=== PATIENT | male | born 1945 | race Asian ===

== ENCOUNTER 2019-05-13 07:37 | Inpatient (IN) | payer OTHER ==
[~2019-05-13] VITALS: Ht 165.1 cm; Wt 80.7 kg
--- NOTE | 2019-05-13 07:45 | NUR ---
EKG TAKEN AT BEDSIDE
--- NOTE | 2019-05-13 07:50 | NUR ---
PT BIBWIFE, C/O LEFT ARM NUMBNESS STARTED AROUND 6:45AM TODAY. PT AAOX4, BREATHING EVEN AND UNLABORED W/ NAD, AND AMBULATORY. PT CONNECTED TO THE MONITOR.
--- NOTE | 2019-05-13 07:59 | NUR ---
BLOOD DRAWN AND SENT TO LAB
[2019-05-13 08:00] LABS: BASOPHILS % (AUTO) 0.5 % (0.0-2.0); EOSINOPHILS % (AUTO) 3.3 % (0.0-6.0); HEMATOCRIT 35 % (39-51); HEMOGLOBIN 11.6 g/dL (13.5-17.5); LYMPHOCYTES # (AUTO) 1.3 /CMM (0.8-4.8); LYMPHOCYTES % (AUTO) 16.2 % (20.0-44.0); MEAN CORPUSCULAR HGB CONC 33 g/dl (31.0-36.0); MEAN CORPUSCULAR VOLUME 93 fL (80-96); MONOCYTES # (AUTO) 0.4 /CMM (0.1-1.30); MONOCYTES % (AUTO) 5.3 % (2.0-12.0); NEUTROPHILS # (AUTO) 6.1 /CMM (1.8-8.9); NEUTROPHILS % (AUTO) 74.7 % (43.0-81.0); PLATELET COUNT (AUTO) 184 /CMM (150-450); RED BLOOD CELL COUNT(AUTO) 3.81 MIL/uL (4.5-6.0); WHITE BLOOD COUNT (AUTO) 8.1 K/uL (4.3-11.0)
[2019-05-13 08:08] LABS: CALCIUM, SERUM 8.8 mg/dL (8.5-10.1); CARBON DIOXIDE 22 mmol/L (21-32); CHLORIDE 102 mmol/L (98-107); CREATININE 4.4 mg/dL (0.6-1.3); GLUCOSE 253 mg/dL (74-106); SODIUM SERUM 133 mmol/L (136-145); UREA NITROGEN, BLOOD 63 mg/dL (7-18)
--- NOTE | 2019-05-13 08:11 | NUR ---
XRAY AT BEDSIDE
--- NOTE | 2019-05-13 08:45 | NUR ---
PLACED CALL TO [facility] FOR DR CADE, LEFT MESSAGE WITH ANSWERING SERVICE
[2019-05-13] MEDS ORDERED: GABA-534 PO (08:52)
[2019-05-13] MEDS ORDERED: ASPI-1152 PO (08:52)
[2019-05-13] MEDS ORDERED: SITA50TA PO (08:52)
[2019-05-13] MEDS ORDERED: INSU100I30 SQ (08:52)
[2019-05-13] MEDS ORDERED: MONT10TA22 PO (08:52)
[2019-05-13] MEDS ORDERED: CLON0.1T PO (08:52)
[2019-05-13] MEDS ORDERED: AMLO5TAB9 PO (08:52)
[2019-05-13] MEDS ORDERED: HYDR25TA4 PO (08:52)
[2019-05-13] MEDS ORDERED: LOSA50TA39 PO (08:52)
[2019-05-13] MEDS ORDERED: ATOR10TA PO (08:52)
[2019-05-13] MEDS ORDERED: ALLO100T PO (08:52)
--- NOTE | 2019-05-13 09:04 | NUR ---
REPORT GIVEN TO JACKIE LARA
--- NOTE | 2019-05-13 10:19 | NUR ---
MS/RN New admission New admission from emergency room with diagnose of neuropathy. A/O X4, denies any further numbness to left arm. Has full strength and range of motion to arm. Fully admitted, awaiting orders.
[2019-05-13] MEDS ORDERED: MORPHINE SULFATE INJ 2 MG/ML DISP.SYRIN IV PRN (10:30)
[2019-05-13] MEDS ORDERED: CLONIDINE HCL 0.1 MG TABLET PO PRN (10:30)
[2019-05-13] MEDS ORDERED: NITROGLYCERIN 0.4 MG/TAB BOTTLE SL PRN (10:30)
--- NOTE | 2019-05-13 10:44 | NUR ---
MS/RN S/B Dr Santo Seen by Dr Santo - patient scheduled for lexiscan tomorrow morning, consent form signed.
[2019-05-13 10:49] VITALS: BP 143/73
[2019-05-13 11:00] VITALS: BP 143/73
[2019-05-13] MEDS ORDERED: SODIUM POLYSTYRENE SULF. PWD 15 GM UDC PO ONE (12:00)
[2019-05-13] MEDS ORDERED: FUROSEMIDE 20 MG/2 ML VIAL IV ONE (12:00)
[2019-05-13] MEDS: LINAGLIPTIN 5 MG TABLET PO SCH (12:36)
--- NOTE | 2019-05-13 12:52 | NUR ---
MS RN BLOOD SUGAR CHECK LUNCH TIME BLOOD SUGAR 130. AWAITING INSULIN ORDERS FROM DR. CADE.
[2019-05-13 15:52] LABS: CALCIUM, SERUM 8.5 mg/dL (8.5-10.1); CARBON DIOXIDE 22 mmol/L (21-32); CHLORIDE 109 mmol/L (98-107); CREATININE 4.4 mg/dL (0.6-1.3); GLUCOSE 170 mg/dL (74-106); POTASSIUM 5.6 mmol/L (3.5-5.1); SODIUM SERUM 141 mmol/L (136-145); UREA NITROGEN, BLOOD 60 mg/dL (7-18)
[2019-05-13 16:00] VITALS: BP 150/79
[2019-05-13] MEDS ORDERED: LOSARTAN POTASSIUM 50 MG TABLET PO SCH (17:00)
[2019-05-13] MEDS: GABAPENTIN 300 MG CAPSULE PO SCH (17:27)
[2019-05-13] MEDS ORDERED: ATORVASTATIN 10 MG TABLET PO SCH (18:00)
--- NOTE | 2019-05-13 19:15 | NUR ---
AUTO RADIO MECHANIC OPENING NOTES RECEIVED PATIENT FROM MORNING SHIFT, ALERT AND ORIENTED X 4. VERBALLY RESPONSIVE AND ABLE TO FOLLOW DIRECTIONS. BREATHING REGULAR AND UNLABORED ON ROOM AIR. RIGHT AC G18 IV LINE INTACT AND PATENT WITH NO BLEEDING OR S/S OF INFECTION/INFILTRATION NOTED. ON TOOL AND DIE REPAIR WITH NSR AT 65bpm. BODY ASSESSMENT DONE, SKIN REMAINED INTACT, DRY AND CLEAN. AMBULATORY; BOWEL AND BLADDER CONTINENT WITH CLEAR YELLOW URINE IN MODERATE AMOUNT ON URINAL. NO COMPLAINTS OF PAIN/DISCOMFORT REPORTED. BED LOW AND LOCKED ON SEMI FOWLERS POSITION. CALL LIGHT IN REACH. WILL CONTINUE TO MONITOR.
--- NOTE | 2019-05-13 19:25 | NUR ---
MS RN CLOSING NOTE PATIENT A/O X4. NO SIGNS OF RESPIRATORY DISTRESS. RIGHT AC HEP LOCK INTACT NO SIGNS OF INFILTRATION. BED IS IN LOWEST POSITION. SIDE RAILS X2 IN UPRIGHT POSITION. CALL LIGHT WITHIN REACH. CRITICAL LAB VALUE RECEIVED TROPONIN 0.735. TRAN PATEL PIN DRAFTING MACHINE OPERATOR NOTIFIED STAT EKG ORDERED. PATIENT DENIES ANY CHEST PAIN, VITAL SIGNS ARE STABLE, CONTINUES TO READ NSR ON MONITOR. ENDORSED TO SETUP OPERATOR.
--- NOTE | 2019-05-13 19:30 | NUR ---
ROLL FORMING MACHINE OPERATOR NOTES LAB CALLED TO REPORT TROPONIN LEVEL INCREASED FROM 0.135 TO 0.756. VITAL SIGNS CHECKED WITH BP 155/80 HR 77 RR 16 Temp 98.9 SPO2 98%. NO REPORTS OF PAIN/DISCOMFORT. ISAIAH PATEL MADE AWARE WITH ORDERS TO DO STAT EKG NOTED AND CARRIED OUT. WILL CONTINUE TO MONITOR.
--- NOTE | 2019-05-13 19:50 | NUR ---
OPERATIONS REPRESENTATIVE NOTES EKG DONE, RESULTS RELAYED TO ISAIAH PATEL WITH NO NEW ORDERS RECEIVED. WILL CONTINUE TO MONITOR.
[2019-05-13 20:04] VITALS: BP 164/76
[2019-05-13] MEDS: INSULIN GLARGINE, 100 UNIT/ML CARTRIDGE SQ SCH (21:43)
[2019-05-13] MEDS ORDERED: INSULIN GLARGINE,BASAGLAR 100 UNIT/ML INSULN.PEN SQ SCH (22:00)
[2019-05-14] VITALS (7 sets, daily range): BP systolic 125–172; BP diastolic 75–82
--- NOTE | 2019-05-14 06:24 | NUR ---
CONDENSER TUBE TENDER CLOSING NOTES PATIENT IN BED ALERT AND ORIENTED X 4. VERBALLY RESPONSIVE AND ABLE TO FOLLOW DIRECTIONS. BREATHING REGULAR AND UNLABORED ON ROOM AIR. RIGHT AC G18 IV LINE INTACT AND PATENT, FLUSHING WELL WITH NO BLEEDING OR S/S OF INFECTION/INFILTRATION NOTED. MAINTAINED ON CARDIAC MONITORING WITH NSR WITH 1ST DEGREE AV BLOCK AT 68bpm. REMAINED AMBULATORY. URINE OUTPUT OF 800CC CLEAR YELLOW NOTED WITHIN THE SHIFT. NO COMPLAINTS OF PAIN/DISCOMFORT REPORTED THE WHOLE SHIFT. BED LOW AND LOCKED ON SEMI FOWLERS POSITION. CALL LIGHT IN REACH. WILL ENDORSE TO MORNING SHIFT FOR POLO.
[2019-05-14 06:27] LABS: BASOPHILS % (AUTO) 0.4 % (0.0-2.0); HEMATOCRIT 35 % (39-51); HEMOGLOBIN 11.4 g/dL (13.5-17.5); LYMPHOCYTES # (AUTO) 1.7 /CMM (0.8-4.8); LYMPHOCYTES % (AUTO) 20.4 % (20.0-44.0); MEAN CORPUSCULAR HGB CONC 33 g/dl (31.0-36.0); MEAN CORPUSCULAR VOLUME 91 fL (80-96); MONOCYTES # (AUTO) 0.6 /CMM (0.1-1.30); MONOCYTES % (AUTO) 6.7 % (2.0-12.0); NEUTROPHILS # (AUTO) 5.9 /CMM (1.8-8.9); NEUTROPHILS % (AUTO) 68.5 % (43.0-81.0); PLATELET COUNT (AUTO) 189 /CMM (150-450); RED BLOOD CELL COUNT(AUTO) 3.82 MIL/uL (4.5-6.0); WHITE BLOOD COUNT (AUTO) 8.5 K/uL (4.3-11.0)
[2019-05-14 06:39] LABS: CARBON DIOXIDE 21 mmol/L (21-32); CHLORIDE 111 mmol/L (98-107); CREATININE 4.3 mg/dL (0.6-1.3); GLUCOSE 64 mg/dL (74-106); POTASSIUM 4.8 mmol/L (3.5-5.1); SODIUM SERUM 145 mmol/L (136-145); UREA NITROGEN, BLOOD 63 mg/dL (7-18)
--- NOTE | 2019-05-14 07:15 | NUR ---
POWER SHOVEL OPERATOR HELPER OPENING NOTES RECEIVED PT IN BED, AWAKE, A/O X4. PT TOLERATING RA, WITH NO RESPIRATORY DISTRESS NOTED. ON TELEMONITORING WITH NSR 80. PT DENIES ANY PAIN OR DISCOMFORT AT THIS TIME. PT ALSO DENIES ANY CONCERNS OR QUESTIONS AT THE MOMENT. PIV TO RAC G18, FLUSHED WITH NS, INTACT AND OPERATIONAL. PT KEPT COMFORTABLE. HOB ELEVATED. CALL LIGHT KEPT WITHIN REACH. BED IN LOWEST, LOCKED POSITION WITH SRX3. WILL CONTINUE PLAN OF CARE.
[2019-05-14] MEDS ORDERED: REGADENOSON 0.4 MG/5 ML DISP.SYRIN IVP ONE (08:00)
--- NOTE | 2019-05-14 08:22 | NUR ---
HRIS COORDINATOR NOTES PT LEFT THE UNIT FOR LEXISCAN.
[2019-05-14] MEDS ORDERED: SITAGLIPTIN PHOSPHATE 50 MG TABLET PO SCH (09:00)
--- NOTE | 2019-05-14 09:38 | NUR ---
EKG as per Dr. Santo's order at 0900. Outstanding order for [address] Patino discontinued.
[2019-05-14] MEDS: MONTELUKAST SODIUM (10MG) 10 MG TABLET PO SCH (09:43)
[2019-05-14] MEDS: ALLOPURINOL 100 MG TABLET PO SCH (09:44)
[2019-05-14] MEDS: HYDROCHLOROTHIAZIDE 25 MG TABLET PO SCH (09:44)
[2019-05-14] MEDS: AMLODIPINE BESYLATE 5 MG TABLET PO SCH (09:44)
[2019-05-14] MEDS: ASPIRIN EC 81 MG TABLET.DR PO SCH (09:44)
[2019-05-14] MEDS: GABAPENTIN 300 MG CAPSULE PO SCH ×2 (09:44→17:20)
[2019-05-14] MEDS: CARVEDILOL 12.5 MG TABLET PO SCH ×2 (09:45→21:40)
[2019-05-14] MEDS: LINAGLIPTIN 5 MG TABLET PO SCH (09:47)
--- NOTE | 2019-05-14 10:20 | NUR ---
BRICK BAKER NOTES PT JUST LEFT AGAIN FOR LEXISCAN PROCEDURE. MD/GA AWARE TRENDING UP OF TROPONIN. NO ORDERS AT THIS MOMENT.
--- NOTE | 2019-05-14 14:43 | NUR ---
MS RN NOTES PT SEEN BY DR. ELIZABETH, PT AWARE OF POSSIBLE FISTULA PLACEMENT. BUT MD WANTS TO DO CTA FIRST PANDA 0730AM. EXPLAINED TO PT AND AT BEDSIDE WITH THE PLAN OF CARE. NPO POST MIDNIGHT AND PLAN OF HEPARIN DRIP AFTER STAT HEAD CT NON CONTRAST COMES NEGATIVE. WILL CONTINUE PLAN OF CARE.
--- NOTE | 2019-05-14 14:53 | NUR ---
MS RN NOTES RN CONFIRMED WITH DR ELIZABETH TO STOP HEPARIN DRIP AT 5AM. HOURS BEFORE CTA PROCEDURE. PT MADE AWARE WELL AND ADEEL/RENATO.
--- NOTE | 2019-05-14 15:52 | NUR ---
MS RN NOTES PT JUST LEFT THE UNIT TO GO FOT CT OF HEAD WITH NO CONTRAST. WILL PLAN OF CARE.
--- NOTE | 2019-05-14 15:53 | NUR ---
MS RN NOTES PT'S PT/PTT/INR RESULT STILL PENDING AT THIS TIME.
[2019-05-14] MEDS ORDERED: HEPARIN SODIUM, PORCINE 5000 UNITS/1 ML VIAL IV ONE (16:30)
--- NOTE | 2019-05-14 16:35 | NUR ---
MS RN NOTES RECEIVED CALL FROM MD AT RADIOLOGY, CT HEAD IS NEGATIVE. PT MADE AWARE. PT STILL CURRENTLY HAVING BED BATH AT THIS TIME. WILL START HEPARIN WHEN HE'S DONE.
--- NOTE | 2019-05-14 16:56 | NUR ---
MS RN NOTES CALLED TO PHARMACY TWICE FOR HEPARIN DRIP MEDICATION. AWAITING FOR MEDICINE.
[2019-05-14] MEDS: HEPARIN INFUSION/D5W 500 ML IV PRN (17:19)
--- NOTE | 2019-05-14 17:20 | NUR ---
MS RN NOTES HEPARIN DRIP STARTED AT 1719, COSIGNED BY ANOTHER RN/JR. WILL CONTINUE TO MONITOR PT.
[2019-05-14] MEDS: ATORVASTATIN 10 MG TABLET PO SCH (17:48)
--- NOTE | 2019-05-14 18:58 | NUR ---
MS RN CLOSING NOTES PT IN BED, AWAKE, A/O X4. PT TOLERATING RA, WITH NO RESPIRATORY DISTRESS NOTED. PT DENIES ANY PAIN OR DISCOMFORT AT THIS TIME. PIV TO RAC G18, ON GOING HEPARIN DRIP, INTACT AND INFUSING WELL. PT AWARE OF NEXT PT/PTT/INR SCHEDULE TONIGHT AND PLAN OF CARE FOR TOMORROW. ALL NEEDS AND CARE ATTENDED. PT KEPT COMFORTABLE. HOB ELEVATED. CALL LIGHT KEPT WITHIN REACH. BED IN LOWEST, LOCKED POSITION WITH SRX3. WILL ENDORSE TO INCOMING NIGHT NURSE FOR POLO.
--- NOTE | 2019-05-14 19:40 | NUR ---
RN OPENING NOTES: RECEIVED REPORT FROM DAYSHIFT JACKIE LANGSTON. FOUND Pt AWAKE, EATING AT BEDSIDE, VISITING. NO S/S OF ACUTE DISTRESS OR SOB NOTED. RESPIRATIONS EVEN AND UNLABORED WITH EQUAL CHEST RISE AND FALL. Pt IS A/OX4, VERBAL, ABLE TO MAKE NEEDS KNOWN. NO C/O PAIN AT THIS TIME. IV ACCESS ON RAC #18G; HEPRIN DRIP INFUSING WELL RUNNING @1185. Pt WILL BE NPO STARTING AT [place] TONIGHT, SCHEDULED FOR CTA @0730AM 05/15/19. SAFETY MEASURES IN PLACE. BED LOW, LOCKED, HOB ELEVATED, SIDE RAILS UP, CALL LIGHT & BEDSIDE TABLE WITHIN REACH. WILL CONTINUE TO MONITOR Pt's CONDITION AND SAFETY THROUGHOUT THE NIGHT.
[2019-05-14] MEDS: INSULIN GLARGINE, 100 UNIT/ML CARTRIDGE SQ SCH (21:42)
--- NOTE | 2019-05-14 22:00 | NUR ---
RN NOTES HS BG 192. HELD LANTUS DUE TO Pt BEING NPO AFTER MN. ELECTRIC POWER LINE REPAIRER AWARE.
[2019-05-15] VITALS (16 sets, daily range): BP systolic 150–193; BP diastolic 65–84
--- NOTE | 2019-05-15 00:28 | NUR ---
RN NOTES INFORMED FROM LAB THAT Pt DID NOT WANT HIS BLOOD DRAWN ON HIS LEFT ARM DUE TO POSSIBLE PLACEMENT OF AV FISTULA ON LFA. EDUCATED Pt THAT THE LAB DRAW FOR THE PT/PTT/INR HAS TO BE ON THE LEFT ARM SINE THE HEPARIN DRIP IS RUNNING ON THE RT ARM, AND EDUCATED Pt THAT THE AV FISTULA CONSULT WONT BE DONE UNTIL AFTER HIS CTA SO HE DOES NOT HAVE TO BE CONCERNED ABOUT USING HIS LEFT ARM FOR BLOOD DRAW.
--- NOTE | 2019-05-15 00:32 | NUR ---
RN NOTES CALLED LAB TO REDRAW BLOOD FOR PT/PTT/INR ON HIS LEFT ARM.
--- NOTE | 2019-05-15 01:20 | NUR ---
RN NOTES STOPPED HEPRIN DRIP. WILL HOLD FOR 60MIN PER PROTOCOL. AND THEN DECREASE RATE BY -250UN. NEW RATE WILL BE 935UN/HR PER PROTOCOL.
[2019-05-15] MEDS ORDERED: IODIXANOL 150 ML IV ONE (06:02)
[2019-05-15] MEDS ORDERED: IV NS 0.9% 50 ML IV ONE (06:03)
[2019-05-15] MEDS ORDERED: IV NS 0.9% 1,000 ML ONE (06:03)
[2019-05-15 06:44] LABS: BASOPHILS % (AUTO) 0.4 % (0.0-2.0); EOSINOPHILS % (AUTO) 3.1 % (0.0-6.0); HEMATOCRIT 34 % (39-51); HEMOGLOBIN 11.2 g/dL (13.5-17.5); LYMPHOCYTES # (AUTO) 1.4 /CMM (0.8-4.8); LYMPHOCYTES % (AUTO) 15.2 % (20.0-44.0); MEAN CORPUSCULAR HGB CONC 33 g/dl (31.0-36.0); MEAN CORPUSCULAR VOLUME 92 fL (80-96); MONOCYTES # (AUTO) 0.6 /CMM (0.1-1.30); MONOCYTES % (AUTO) 6.3 % (2.0-12.0); NEUTROPHILS # (AUTO) 6.9 /CMM (1.8-8.9); PLATELET COUNT (AUTO) 189 /CMM (150-450); RED BLOOD CELL COUNT(AUTO) 3.75 MIL/uL (4.5-6.0); WHITE BLOOD COUNT (AUTO) 9.2 K/uL (4.3-11.0)
--- NOTE | 2019-05-15 06:46 | NUR ---
RN NOTES Pt LEFT FLOOR FOR CTA PROCEDURE. 2ND IV ACCESS ON LFA #20G.
--- NOTE | 2019-05-15 06:48 | NUR ---
RN CLOSING NOTES NO SIGNIFICANT CHANGES IN Pt's CONDITION. Pt REMAINS STABLE PER BASELINE. NO S/S OF ACUTE DISTRESS OR SOB NOTED DURING THE NIGHT. Pt HAS LEFT THE FLOOR FOR 0730 PROCEDURE. ALL NEEDS MET AND ATTENDED TO. SAFETY MEASURES IN PLACE. WILL ENDORSE TO DAYSHIFT RN FOR Pt's POLO.
[2019-05-15] MEDS ORDERED: IV SET PRIMARY PUMP SET 1 EA INFUS.SET MC ONE (07:06)
[2019-05-15] MEDS ORDERED: LIDOCAINE HCL/PF 1% 30 ML SDV ONE (07:08)
[2019-05-15] MEDS ORDERED: VERAPAMIL HCL IV 5 MG/2 ML VIAL ONE (07:08)
[2019-05-15] MEDS ORDERED: NITROGLYCERIN ICAR 1,000 MCG/10 ML VIAL ICAR ONE (07:08)
--- NOTE | 2019-05-15 07:15 | NUR ---
MS RN NOTES RECEIVED REPORT FROM NIGHT NURSE, PT NOT PRESENT ON THE UNIT. PT CURRENTLY DOING CTA. SPOUSE PRESENT AT BEDSIDE AND AWARE WITH THE PLAN OF CARE.
[2019-05-15 07:25] LABS: CALCIUM, SERUM 8.8 mg/dL (8.5-10.1); CARBON DIOXIDE 21 mmol/L (21-32); CHLORIDE 109 mmol/L (98-107); CREATININE 4.1 mg/dL (0.6-1.3); GLUCOSE 149 mg/dL (74-106); POTASSIUM 5.2 mmol/L (3.5-5.1); SODIUM SERUM 142 mmol/L (136-145); UREA NITROGEN, BLOOD 61 mg/dL (7-18)
[2019-05-15] MEDS ORDERED: FENTANYL PF 100MCG/2ML AMPUL ONE (07:28)
[2019-05-15] MEDS ORDERED: HEPARIN SODIUM, PORCINE 1,000 UNIT/ML VIAL ONE (07:29)
[2019-05-15] MEDS ORDERED: MIDAZOLAM HCL 2 MG/2ML VIAL ONE (07:29)
[2019-05-15] MEDS ORDERED: hydrALAZINE HCL IV 20 MG VIAL IV ONE (07:37)
[2019-05-15] MEDS ORDERED: IODIXANOL 320MG/ML 100 ML IV ONE (08:20)
[2019-05-15] MEDS ORDERED: ATROPINE SULFATE 1 MG/10 ML DISP.SYRIN IV ONE (09:00)
--- NOTE | 2019-05-15 09:15 | NUR ---
RN INITIAL NOTES 0850 RECEIVED PT FROM CONTRACT SPECIALIST. PT A/OX4. ON VIA NC AT 2LPM. CONNECTED TO MONITOR. IV LINES IN PLACE. NOTED TR BAND ON RIGHT RADIAL AND RIGHT FEMORAL SHEATH IN PLACE. GOOD DISTAL PULSES NOTED. WILL FOLLOW POST CARDIAC CATH ORDERS PER PROTOCOL. WILL CLOSELY MONITOR 904 RIGHT FEMORAL SHEATH REMOVED BY JACKIE SWIFT. PRESSURE APPLIED. TEGADERM IN PLACE AT 0920. DISTAL PULSES PRESENT. WILL MONITOR
--- NOTE | 2019-05-15 10:00 | NUR ---
RN NOTES PT'S SPOUSE PACKED AND TOOK ALL BELONGINGS. NO INVENTORY LIST PERESENT IN THE UNIT, BUT PER SPOUSE "NOTHING IS MISSING". ADEEL/JAIR MADE AWARE WELL.
[2019-05-15] MEDS: MONTELUKAST SODIUM (10MG) 10 MG TABLET PO SCH (10:24)
[2019-05-15] MEDS: HYDROCHLOROTHIAZIDE 25 MG TABLET PO SCH (10:24)
[2019-05-15] MEDS: ASPIRIN EC 81 MG TABLET.DR PO SCH (10:24)
[2019-05-15] MEDS: LINAGLIPTIN 5 MG TABLET PO SCH (10:24)
[2019-05-15] MEDS: GABAPENTIN 300 MG CAPSULE PO SCH ×2 (10:24→17:46)
[2019-05-15] MEDS: ALLOPURINOL 100 MG TABLET PO SCH (10:25)
[2019-05-15] MEDS: CARVEDILOL 12.5 MG TABLET PO SCH (10:25)
[2019-05-15] MEDS: AMLODIPINE BESYLATE 5 MG TABLET PO SCH (10:25)
--- NOTE | 2019-05-15 11:00 | NUR ---
RN NOTES TR BAND REMOVED. APPLIED TEGADERM. NO BLEEDING NOTED. GOOD RADIAL PULSE NOTED. WILL MONITOR.
--- NOTE | 2019-05-15 11:59 | NUR ---
SW met with pt's Esther regarding her request for a verification of admission letter for her employer. SW typed letter and gave it to pt's Esther.
[2019-05-15] MEDS: HEPARIN INFUSION/D5W 500 ML IV PRN (14:11)
--- NOTE | 2019-05-15 14:55 | NUR ---
RN NOTES CALLED [facility] FOR [facility] ([phone]). SPOKE WITH JACKIE GOMEZ. ALL PERTINENT INFORMATION GIVEN. P/U TIME 1600. PT AWARE.
[2019-05-15] MEDS: ATORVASTATIN 10 MG TABLET PO SCH (17:46)
--- NOTE | 2019-05-15 18:32 | NUR ---
RN NOTES PT LEFT TO [facility] FOR [facility]. PT A/OX4. ON 02 VIA NC AT 2LPM. IV LINES IN PLACE. ON HEPARIN DRIP AT 935UNITS/HR. GOOD PULSES NOTED. VS WNL. AT BEDSIDE AWARE. ACLS RN GIVEN REPORT. LEFT IN STABLE CONDITION.
== END 2019-05-15 19:53 | disposition short-term general hospital (02) | DRG 280 ==
LOC: ER 07:39 → TELE 09:34 → MED 05-14 08:56 → ICU 05-15 08:58
PROVIDERS: ADMIT Internal Medicine; ATTEND Family Medicine
DX: I21.4 Non-ST elevation (NSTEMI) myocardial infarction (principal); N18.6 End stage renal disease; N17.0 Acute kidney failure with tubular necrosis; I13.2 Hypertensive heart and chronic kidney disease with heart failure and with stage 5 chronic kidney disease, or end stage renal disease; E87.1 Hypo-osmolality and hyponatremia; N17.9 Acute kidney failure, unspecified; E11.40 Type 2 diabetes mellitus with diabetic neuropathy, unspecified; E78.5 Hyperlipidemia, unspecified; E87.5 Hyperkalemia; E11.65 Type 2 diabetes mellitus with hyperglycemia; E11.22 Type 2 diabetes mellitus with diabetic chronic kidney disease; D63.8 Anemia in other chronic diseases classified elsewhere; E66.9 Obesity, unspecified; Z68.29 Body mass index [BMI] 29.0-29.9, adult; Z87.891 Personal history of nicotine dependence; Z99.2 Dependence on renal dialysis; I70.0 Atherosclerosis of aorta; I50.9 Heart failure, unspecified; I25.10 Atherosclerotic heart disease of native coronary artery without angina pectoris; Z79.4 Long term (current) use of insulin; Z79.82 Long term (current) use of aspirin; Z79.84 Long term (current) use of oral hypoglycemic drugs; Z79.899 Other long term (current) drug therapy
CPT/HCPCS: 36415; 70450-TC; 71045-TC; 80048-TC; 82962-TC; 84484-TC; 85025-TC; 85610-TC; 85730-TC; 87081-TC; 93307-TC; 93452; A4216; A9502; C1887; C1894; G0378; J0360; J0461; J1644; J1815; J1940; J2250; J2785; J3010; J3490; Q9967

== ENCOUNTER 2025-06-23 17:00 | Inpatient (IN) | payer MEDICARE, OTHER ==
[~2025-06-23] VITALS: Ht 152.4 cm; Wt 67.6 kg
[~2025-06-23 17:00] MED LIST: ALLO100T PO; AMLO-212 PO; ASPI-1420 PO; ATOR10TA PO; CLON0.1T PO; GABA-534 PO; HYDR25TA4 PO; INSU100I30 SQ; LOSA50TA39 PO; MONT10TA22 PO; SITA50TA PO
[2025-06-23 17:35] LABS: PLATELET COUNT (AUTO) 173 K/uL (150-450); RED BLOOD CELL COUNT(AUTO) 3.35 MIL/uL (4.5-6.0); RED CELL DISTRIBUTION WIDTH 15.4 % (11.5-15.0); WHITE BLOOD COUNT (AUTO) 7.1 K/uL (4.3-11.0)
[2025-06-23 17:43] LABS: CALCIUM, SERUM 9.1 mg/dL (8.5-10.1); CREATININE 3.7 mg/dL (0.6-1.3); SODIUM SERUM 139 mmol/L (136-145); UREA NITROGEN, BLOOD 17 mg/dL (7-18)
[2025-06-23 17:57] LABS: NT-PRO BNP 13176 pg/mL (0-125)
[2025-06-23] MEDS ORDERED: LEVOFLOXACIN 750 MG /D5W 150ML 150 ML IV ONE (19:26)
[2025-06-23] MEDS: LEVOFLOXACIN 750 MG /D5W 150ML PIGGYBACK IV ONE (19:33)
[2025-06-23] MEDS ORDERED: KETOROLAC TROMETHAMINE 15 MG/ML VIAL ONE (19:34)
[2025-06-23] MEDS: KETOROLAC TROMETHAMINE 15 MG/ML VIAL IV ONE (19:42)
[2025-06-23 20:00] VITALS: BP 89/31; TEMP 97.5; O2SAT 100
[2025-06-23] MEDS ORDERED: ONDANSETRON HCL/PF 4 MG/2 ML VIAL IVP PRN (21:30)
[2025-06-23] MEDS ORDERED: Z GUARD REMEDY 4 OZ OINT TP PRN (21:30)
[2025-06-23] MEDS ORDERED: METHOCARBAMOL (500MG) 500 MG TABLET PO PRN (22:30)
[2025-06-23] MEDS ORDERED: IV NS 0.9% 250 ML IV ONE (22:32)
[2025-06-23] MEDS ORDERED: CT SWABBABLE VALVE TRANS SET 1 EA INFUS.SET MC ONE (22:32)
[2025-06-23] MEDS ORDERED: IOHEXOL-350 100 ML VIAL IV ONE (22:32)
[2025-06-23] MEDS: LIDOCAINE 5% (PATCH) 1 EA PATCH TP SCH (23:24)
[2025-06-24] VITALS: BP 93/39; TEMP 96.9; O2SAT 99
[2025-06-24] MEDS ORDERED: DOSING PER PHARMACY-VANCOMYCIN IV XX PRN
[2025-06-24] MEDS ORDERED: DOSING PER PHARMACY-CEFEPIME IVPB XX PRN
[2025-06-24] MEDS ORDERED: DEXTROSE 50%-WATER 50 ML DISP.SYRIN IV PRN (00:30)
[2025-06-24] MEDS ORDERED: NITROGLYCERIN 0.4 MG/TAB BOTTLE SL PRN (00:30)
[2025-06-24] MEDS ORDERED: VANCOMYCIN 500 MG VIAL ONE (01:00)
[2025-06-24] MEDS ORDERED: CEFEPIME 1 GM VIAL ONE (01:01)
[2025-06-24] MEDS: CEFEPIME 1 GM in IV D5W 50 ML IV ONE (01:11)
[2025-06-24] MEDS: VANCOMYCIN 500 MG in IV D5W 100ml IV ONE ×2 (01:15→08:56)
[2025-06-24 04:00] VITALS: BP 99/43; TEMP 94.6; O2SAT 98
[2025-06-24] MEDS: BLOOD SUGAR DIAGNOSTIC 1 EACH STRIP IN SCH (06:30)
[2025-06-24] MEDS: INSULIN REGULAR, HUMAN 100 UNIT/ML 3 ML VIAL SQ PRN (06:32)
[2025-06-24 06:36] LABS: PLATELET COUNT (AUTO) 151 K/uL (150-450); RED BLOOD CELL COUNT(AUTO) 3.04 MIL/uL (4.5-6.0); RED CELL DISTRIBUTION WIDTH 15.4 % (11.5-15.0); WHITE BLOOD COUNT (AUTO) 6.1 K/uL (4.3-11.0)
[2025-06-24 06:45] LABS: CALCIUM, SERUM 9.0 mg/dL (8.5-10.1); CREATININE 4.5 mg/dL (0.6-1.3); PHOSPHORUS 3.5 mg/dL (2.5-4.9); SODIUM SERUM 135.0 mmol/L (136-145); UREA NITROGEN, BLOOD 24.0 mg/dL (7-18)
[2025-06-24 08:00] VITALS: BP 106/50; TEMP 98; O2SAT 98
[2025-06-24] MEDS: PANTOPRAZOLE 40 MG TABLET.DR PO SCH (08:01)
[2025-06-24] MEDS: ASPIRIN 81 MG TAB.CHEW PO SCH (08:01)
[2025-06-24] MEDS ORDERED: IPRA3AMP23 NEB (08:08)
[2025-06-24] MEDS ORDERED: SEVE800T8 PO (08:08)
[2025-06-24] MEDS ORDERED: PANT40TA49 PO (08:08)
[2025-06-24] MEDS ORDERED: MIDO5TAB4 PO (08:08)
[2025-06-24] MEDS ORDERED: FOLI0.8T23 PO (08:08)
[2025-06-24] MEDS ORDERED: FEXO-25 PO (08:08)
[2025-06-24 13:13] LABS: INR 1.04 (0.91-1.10)
[2025-06-24] MEDS: ACETAMINOPHEN 325 MG TABLET PO PRN (15:05)
[2025-06-24 20:00] VITALS: BP 102/44; TEMP 97.9; O2SAT 99
[2025-06-24 21:54] VITALS: BP 102/44; TEMP 97.9; O2SAT 99
[2025-06-25] VITALS (11 sets, daily range): BP systolic 95–104; BP diastolic 36–54; TEMP 93.7–98.2; O2SAT 95–100
[2025-06-25] MEDS: CEFEPIME 1 GM in IV D5W 50 ML IV SCH (00:39)
[2025-06-25 06:36] LABS: PLATELET COUNT (AUTO) 170 K/uL (150-450); RED BLOOD CELL COUNT(AUTO) 3.19 MIL/uL (4.5-6.0); RED CELL DISTRIBUTION WIDTH 15.4 % (11.5-15.0); WHITE BLOOD COUNT (AUTO) 7.4 K/uL (4.3-11.0)
[2025-06-25 06:39] LABS: CALCIUM, SERUM 9.5 mg/dL (8.5-10.1); CREATININE 6.4 mg/dL (0.6-1.3); SODIUM SERUM 133.0 mmol/L (136-145); UREA NITROGEN, BLOOD 41.0 mg/dL (7-18)
[2025-06-25 06:47] LABS: INR 1.08 (0.91-1.10)
[2025-06-25] MEDS ORDERED: PANTOPRAZOLE 40 MG TABLET.DR PO SCH (07:30)
[2025-06-25] MEDS: ASPIRIN EC 81 MG TABLET.DR PO SCH (08:07)
[2025-06-25] MEDS: SEVELAMER CARBONATE 800 MG TABLET PO SCH (08:07)
[2025-06-25] MEDS: GABAPENTIN 300 MG CAPSULE PO SCH (08:07)
[2025-06-25] MEDS: LINAGLIPTIN 5 MG TABLET PO SCH (08:07)
[2025-06-25] MEDS: ATORVASTATIN 10 MG TABLET PO SCH (08:07)
[2025-06-25] MEDS: VIT B CMPLX 3/FA/VIT C/BIOTIN 1 TAB TABLET PO SCH (08:07)
[2025-06-25] MEDS: ALBUTEROL FS 2.5 MG/3 ML VIAL.NEB NEB SCH (08:29)
[2025-06-25] MEDS: IPRATROPIUM NEB FS 0.5 MG/2.5 ML AMPUL.NEB NEB SCH (08:29)
[2025-06-25] MEDS ORDERED: Medication Not On Formulary EA (Ipratropium/Albuterol Sulfate (Duoneb 2.5-0.5 Mg/3 Ml So NEB SCH (09:00)
[2025-06-25] MEDS: VANCOMYCIN POST DIALYSIS 500MG IV PRN (13:57)
[2025-06-25] MEDS: INSULIN GLARGINE, 100 UNIT/ML CARTRIDGE SQ SCH (22:02)
[2025-06-25] MEDS: MONTELUKAST SODIUM (10MG) 10 MG TABLET PO SCH (22:03)
[2025-06-26] VITALS (11 sets, daily range): BP systolic 87–107; BP diastolic 37–48; TEMP 97.3–98.5; O2SAT 93–100
[2025-06-26] MEDS: IV NS 0.9% 500 ML BAG IV STA (00:49)
[2025-06-26 01:33] LABS: PLATELET COUNT (AUTO) 146 K/uL (150-450); RED BLOOD CELL COUNT(AUTO) 2.97 MIL/uL (4.5-6.0); RED CELL DISTRIBUTION WIDTH 15.3 % (11.5-15.0); WHITE BLOOD COUNT (AUTO) 6.1 K/uL (4.3-11.0)
[2025-06-26 03:43] LABS: LYMPHOCYTES % (MANUAL) 8 % (16-48); NEUTROPHILS % (MANUAL) 73 (42-76)
[2025-06-26 03:44] LABS: EOSINOPHILS % (MANUAL) 4 % (0-4); MONOCYTES % (MANUAL) 15 % (0-11.0); PLATELET ESTIMATE ADEQUATE
[2025-06-26 07:06] LABS: CALCIUM, SERUM 9.0 mg/dL (8.5-10.1); CREATININE 4.5 mg/dL (0.6-1.3); SODIUM SERUM 137.0 mmol/L (136-145); UREA NITROGEN, BLOOD 23.0 mg/dL (7-18)
[2025-06-26 09:50] LABS: PROTEIN, BODY FLUID 3.1 G/DL
[2025-06-26 10:40] LABS: APPEARANCE,SPUN,BODY FLUID CLEAR (CLEAR); TOTAL VOLUME,BODY FLUID 2 mL
[2025-06-26 10:41] LABS: WBC, BODY FLUID 47 /cu. mm. (0-200)
[2025-06-26 11:19] LABS: MONOCYTES,BODY FLUID 10 %
[2025-06-27] VITALS (8 sets, daily range): BP systolic 92–114; BP diastolic 40–54; TEMP 97.3–98.2; O2SAT 96–100
[2025-06-27 07:19] LABS: CALCIUM, SERUM 8.9 mg/dL (8.5-10.1); CREATININE 6.3 mg/dL (0.6-1.3); SODIUM SERUM 134.0 mmol/L (136-145); UREA NITROGEN, BLOOD 35.0 mg/dL (7-18)
[2025-06-27] MEDS: MIDODRINE HCL (5MG) 5 MG TABLET PO PRN (11:54)
[2025-06-27] MEDS: ALBUMIN 25% 25 GM in PREMIX 1 EA IV PRN (13:15)
[2025-06-27] MEDS: SENNOSIDES 8.6 MG TABLET PO PRN (21:36)
[2025-06-28] VITALS (10 sets, daily range): BP systolic 90–105; BP diastolic 42–50; TEMP 97.7–98.4; O2SAT 98–100
[2025-06-28 07:15] LABS: CALCIUM, SERUM 8.9 mg/dL (8.5-10.1); CREATININE 4.6 mg/dL (0.6-1.3); SODIUM SERUM 136.0 mmol/L (136-145); UREA NITROGEN, BLOOD 23.0 mg/dL (7-18)
[2025-06-28] MEDS: MIDODRINE HCL (5MG) 5 MG TABLET PO SCH (08:28)
[2025-06-29] VITALS (7 sets, daily range): BP systolic 90–95; BP diastolic 36–46; TEMP 97.5–98.1; O2SAT 95–99
[2025-06-29 06:59] LABS: CALCIUM, SERUM 9.2 mg/dL (8.5-10.1); CREATININE 6.4 mg/dL (0.6-1.3); SODIUM SERUM 132.0 mmol/L (136-145); UREA NITROGEN, BLOOD 40.0 mg/dL (7-18)
[2025-06-29] MEDS: BISACODYL SUPP (10 MG) 10 MG/SUPP.RECT SUPP.RECT RC PRN (11:31)
[2025-06-30] VITALS (33 sets, daily range): BP systolic 83–103; BP diastolic 36–89; TEMP 97.5–99; O2SAT 98–100
[2025-06-30 05:55] LABS: PLATELET COUNT (AUTO) 117 K/uL (150-450); RED BLOOD CELL COUNT(AUTO) 2.67 MIL/uL (4.5-6.0); RED CELL DISTRIBUTION WIDTH 15.0 % (11.5-15.0); WHITE BLOOD COUNT (AUTO) 9.4 K/uL (4.3-11.0)
[2025-06-30 06:04] LABS: CALCIUM, SERUM 9.1 mg/dL (8.5-10.1); CREATININE 4.8 mg/dL (0.6-1.3); SODIUM SERUM 136.0 mmol/L (136-145); UREA NITROGEN, BLOOD 28.0 mg/dL (7-18)
[2025-06-30 06:08] LABS: PHOSPHORUS 3.4 mg/dL (2.5-4.9)
[2025-06-30] MEDS: IV NS 0.9% 250 ML IV ONE (09:10)
[2025-06-30 09:15] LABS: ABG BASE EXCESS 0.2 mmol/L (-2.0-3.0); ABG OXYGEN SATURATION 98.4 % (94.0-98.0); ABG PCO2 52.3 mmHg (35.0-48.0); ABG PH 7.325 (7.350-7.450); ABG PO2 148.1 mmHg (83.0-108.0); ABG TOTAL HEMOGLOBIN 9.9 G/dL (13.5-17.5); FLOW, BLOOD GAS 2.00 L/min (0.00-30.00); SITE, ABG RIGHT RADIAL
[2025-06-30 14:00] LABS: ABG BASE EXCESS -0.7 mmol/L (-2.0-3.0); ABG OXYGEN SATURATION 98.3 % (94.0-98.0); ABG PCO2 46.1 mmHg (35.0-48.0); ABG PH 7.353 (7.350-7.450); ABG PO2 139.5 mmHg (83.0-108.0); ABG TOTAL HEMOGLOBIN 10.2 G/dL (13.5-17.5); FRACTIONATED INSPIRED OXYGEN 35.0 %; SET RATE, BG 16.0; SITE, ABG RIGHT BRACHIAL
[2025-07-01] VITALS (73 sets, daily range): BP systolic 65–159; BP diastolic 14–82; TEMP 96.5–98.5; O2SAT 94–100
[2025-07-01] MEDS ORDERED: IV NS 0.9% 250 ML IV PRN (01:00)
[2025-07-01 04:45] LABS: PLATELET COUNT (AUTO) 132 K/uL (150-450); RED BLOOD CELL COUNT(AUTO) 2.76 MIL/uL (4.5-6.0); RED CELL DISTRIBUTION WIDTH 15.9 % (11.5-15.0); WHITE BLOOD COUNT (AUTO) 10.2 K/uL (4.3-11.0)
[2025-07-01 04:59] LABS: CALCIUM, SERUM 9.6 mg/dL (8.5-10.1); CREATININE 6.6 mg/dL (0.6-1.3); PHOSPHORUS 5.2 mg/dL (2.5-4.9); SODIUM SERUM 134 mmol/L (136-145); UREA NITROGEN, BLOOD 46 mg/dL (7-18)
[2025-07-01] MEDS: CLOTRIMAZOLE 1% 15 GM TUBE TP SCH (08:25)
[2025-07-01] MEDS: IV NS 0.9% 250 ML IV ONE (08:27)
[2025-07-01 08:46] LABS: ABG BASE EXCESS -3.0 mmol/L (-2.0-3.0); ABG OXYGEN SATURATION 99.1 % (94.0-98.0); ABG PCO2 47.5 mmHg (35.0-48.0); ABG PH 7.309 (7.350-7.450); ABG PO2 244.8 mmHg (83.0-108.0); ABG TOTAL HEMOGLOBIN 10.0 G/dL (13.5-17.5); FLOW, BLOOD GAS 2.00 L/min (0.00-30.00); FRACTIONATED INSPIRED OXYGEN 28.0 %
[2025-07-01] MEDS: NOREPINEPHRINE 8 MG in IV NS 0.9% 242 ML IV PRN (09:20)
[2025-07-01 10:58] LABS: ABG BASE EXCESS -3.0 mmol/L (-2.0-3.0); ABG OXYGEN SATURATION 97.6 % (94.0-98.0); ABG PCO2 44.7 mmHg (35.0-48.0); ABG PH 7.328 (7.350-7.450); ABG PO2 114.2 mmHg (83.0-108.0); ABG TOTAL HEMOGLOBIN 10.5 G/dL (13.5-17.5); FRACTIONATED INSPIRED OXYGEN 28.0 %; SET RATE, BG 16.0; SITE, ABG RIGHT BRACHIAL
[2025-07-01] MEDS: IV D5/ 0.9% NACL 1,000 ML IV PRN (11:19)
[2025-07-01] MEDS: VANCOMYCIN 1 GM /D5W 250 ML PB IV ONE (23:29)
[2025-07-02] VITALS (94 sets, daily range): BP systolic 63–131; BP diastolic 18–74; TEMP 97.3–98.2; O2SAT 93–100
[2025-07-02 04:31] LABS: PLATELET COUNT (AUTO) 145 K/uL (150-450); RED BLOOD CELL COUNT(AUTO) 2.65 MIL/uL (4.5-6.0); RED CELL DISTRIBUTION WIDTH 14.6 % (11.5-15.0); WHITE BLOOD COUNT (AUTO) 9.1 K/uL (4.3-11.0)
[2025-07-02 04:40] LABS: CALCIUM, SERUM 9.1 mg/dL (8.5-10.1); CREATININE 3.4 mg/dL (0.6-1.3); PHOSPHORUS 2.9 mg/dL (2.5-4.9); SODIUM SERUM 141.0 mmol/L (136-145); UREA NITROGEN, BLOOD 21.0 mg/dL (7-18)
[2025-07-02 09:13] LABS: ABG BASE EXCESS 3.2 mmol/L (-2.0-3.0); ABG OXYGEN SATURATION 86.6 % (94.0-98.0); ABG PCO2 47.6 mmHg (35.0-48.0); ABG PH 7.396 (7.350-7.450); ABG PO2 52.8 mmHg (83.0-108.0); ABG TOTAL HEMOGLOBIN 9.8 G/dL (13.5-17.5); FRACTIONATED INSPIRED OXYGEN 24.0 %; SET RATE, BG 16.0; SITE, ABG RIGHT RADIAL
[2025-07-02] MEDS: HEPARIN SODIUM, PORCINE 5000 UNITS/1 ML VIAL IV ONE (20:09)
[2025-07-02] MEDS: HEPARIN INFUSION/D5W 500 ML IV PRN (20:27)
[2025-07-03] VITALS (103 sets, daily range): BP systolic 82–133; BP diastolic 30–69; TEMP 97.5–98.1; O2SAT 97–100
[2025-07-03 03:33] LABS: PLATELET COUNT (AUTO) 143 K/uL (150-450); RED BLOOD CELL COUNT(AUTO) 2.71 MIL/uL (4.5-6.0); RED CELL DISTRIBUTION WIDTH 15.8 % (11.5-15.0); WHITE BLOOD COUNT (AUTO) 7.5 K/uL (4.3-11.0)
[2025-07-03 03:42] LABS: CALCIUM, SERUM 8.6 mg/dL (8.5-10.1); CREATININE 4.8 mg/dL (0.6-1.3); PHOSPHORUS 4.2 mg/dL (2.5-4.9); SODIUM SERUM 142.0 mmol/L (136-145); UREA NITROGEN, BLOOD 30.0 mg/dL (7-18)
[2025-07-03 04:25] LABS: EOSINOPHILS % (MANUAL) 3 % (0-4); LYMPHOCYTES % (MANUAL) 6 % (16-48); MONOCYTES % (MANUAL) 12 % (0-11.0); NEUTROPHILS % (MANUAL) 79 (42-76); PLATELET ESTIMATE DECREASED
[2025-07-03 08:38] LABS: ABG BASE EXCESS -2.4 mmol/L (-2.0-3.0); ABG OXYGEN SATURATION 99.2 % (94.0-98.0); ABG PCO2 52.8 mmHg (35.0-48.0); ABG PH 7.286 (7.350-7.450); ABG PO2 327.8 mmHg (83.0-108.0); ABG TOTAL HEMOGLOBIN 10.5 G/dL (13.5-17.5); FLOW, BLOOD GAS 6.00 L/min (0.00-30.00); FRACTIONATED INSPIRED OXYGEN 44.0 %; SITE, ABG RIGHT RADIAL
[2025-07-03] MEDS: HEPARIN SODIUM, PORCINE 5000 UNITS/1 ML VIAL IV ONE (12:00)
[2025-07-03] MEDS: HEPARIN SODIUM, PORCINE 1000 UNIT/1 ML VIAL IV ONE (12:04)
[2025-07-04] VITALS (86 sets, daily range): BP systolic 91–132; BP diastolic 35–89; TEMP 97.3–98.5; O2SAT 97–100
[2025-07-04 04:48] LABS: PLATELET COUNT (AUTO) 139 K/uL (150-450); RED BLOOD CELL COUNT(AUTO) 2.56 MIL/uL (4.5-6.0); RED CELL DISTRIBUTION WIDTH 15.3 % (11.5-15.0); WHITE BLOOD COUNT (AUTO) 7.1 K/uL (4.3-11.0)
[2025-07-04 05:13] LABS: ASPARTATE AMINOTRANSFERASE 27.0 U/L (15-37); CALCIUM, SERUM 8.6 mg/dL (8.5-10.1); CREATININE 3.7 mg/dL (0.6-1.3); PHOSPHORUS 3.7 mg/dL (2.5-4.9); SODIUM SERUM 147.0 mmol/L (136-145); TOTAL PROTEIN, SERUM 7.0 g/dL (6.4-8.2); UREA NITROGEN, BLOOD 17.0 mg/dL (7-18)
[2025-07-04 05:59] LABS: EOSINOPHILS % (MANUAL) 4 % (0-4); LYMPHOCYTES % (MANUAL) 7 % (16-48); MONOCYTES % (MANUAL) 17 % (0-11.0); NEUTROPHILS % (MANUAL) 72 (42-76); PLATELET ESTIMATE DECREASED
[2025-07-04] MEDS ORDERED: PHARMACY TO ADJUST ALL MEDS FOR RENAL FUNCT XX PRN ×2 (09:30→10:00)
[2025-07-04] MEDS: APIXABAN 2.5 MG TABLET PO SCH (17:01)
[2025-07-05] VITALS (99 sets, daily range): BP systolic 80–146; BP diastolic 33–112; TEMP 97.8–98.3; O2SAT 92–100
[2025-07-05 23:55] LABS: OCCULT BLOOD STOOL POSITIVE (NEGATIVE)
[2025-07-06] VITALS (85 sets, daily range): BP systolic 82–145; BP diastolic 32–88; TEMP 97.6–99.4; O2SAT 90–100
[2025-07-06 04:17] LABS: PLATELET COUNT (AUTO) 111 K/uL (150-450); RED BLOOD CELL COUNT(AUTO) 2.35 MIL/uL (4.5-6.0); RED CELL DISTRIBUTION WIDTH 16.2 % (11.5-15.0); WHITE BLOOD COUNT (AUTO) 7.9 K/uL (4.3-11.0)
[2025-07-06 04:28] LABS: CALCIUM, SERUM 8.0 mg/dL (8.5-10.1); CREATININE 3.4 mg/dL (0.6-1.3); SODIUM SERUM 145 mmol/L (136-145); UREA NITROGEN, BLOOD 12 mg/dL (7-18)
[2025-07-06 05:34] LABS: EOSINOPHILS % (MANUAL) 3 % (0-4); LYMPHOCYTES % (MANUAL) 9 % (16-48); MONOCYTES % (MANUAL) 17 % (0-11.0); NEUTROPHILS % (MANUAL) 71 (42-76); PLATELET ESTIMATE ADEQUATE
[2025-07-06 11:22] LABS: ABG BASE EXCESS 0.9 mmol/L (-2.0-3.0); ABG OXYGEN SATURATION 93.2 % (94.0-98.0); ABG PCO2 45.5 mmHg (35.0-48.0); ABG PH 7.380 (7.350-7.450); ABG PO2 66.1 mmHg (83.0-108.0); ABG TOTAL HEMOGLOBIN 9.7 G/dL (13.5-17.5); FLOW, BLOOD GAS 1.00 L/min (0.00-30.00); FRACTIONATED INSPIRED OXYGEN 24.0 %; SITE, ABG RIGHT BRACHIAL
[2025-07-06] MEDS ORDERED: NOREPINEPHRINE 8 MG in IV NS 0.9% 242 ML IV PRN (22:00)
[2025-07-07] VITALS (44 sets, daily range): BP systolic 71–129; BP diastolic 27–63; TEMP 98–98.9; O2SAT 97–100
[2025-07-07 05:48] LABS: PLATELET COUNT (AUTO) 108 K/uL (150-450); RED BLOOD CELL COUNT(AUTO) 2.26 MIL/uL (4.5-6.0); RED CELL DISTRIBUTION WIDTH 16.9 % (11.5-15.0); WHITE BLOOD COUNT (AUTO) 8.1 K/uL (4.3-11.0)
[2025-07-07 05:55] LABS: CALCIUM, SERUM 8.5 mg/dL (8.5-10.1); CREATININE 4.9 mg/dL (0.6-1.3); SODIUM SERUM 145.0 mmol/L (136-145); UREA NITROGEN, BLOOD 20.0 mg/dL (7-18)
[2025-07-07 08:08] LABS: IRON, SERUM 59 ug/dl (50-175)
[2025-07-07] MEDS: GUAIFENESIN 300 MG/15 ML UDC PO PRN (08:35)
[2025-07-07] MEDS: PANTOPRAZOLE 40 MG VIAL IV SCH (09:00)
[2025-07-07 09:58] LABS: PLATELET COUNT (AUTO) 109 K/uL (150-450); RED BLOOD CELL COUNT(AUTO) 2.27 MIL/uL (4.5-6.0); RED CELL DISTRIBUTION WIDTH 17.2 % (11.5-15.0); WHITE BLOOD COUNT (AUTO) 7.9 K/uL (4.3-11.0)
[2025-07-08] VITALS (106 sets, daily range): BP systolic 81–132; BP diastolic 33–79; TEMP 97.7–98.8; O2SAT 93–100
[2025-07-09] VITALS (99 sets, daily range): BP systolic 77–127; BP diastolic 35–74; TEMP 97.9–98.7; O2SAT 96–100
[2025-07-09 04:20] LABS: PLATELET COUNT (AUTO) 124 K/uL (150-450); RED BLOOD CELL COUNT(AUTO) 2.16 MIL/uL (4.5-6.0); RED CELL DISTRIBUTION WIDTH 16.8 % (11.5-15.0); WHITE BLOOD COUNT (AUTO) 9.5 K/uL (4.3-11.0)
[2025-07-09 04:31] LABS: ASPARTATE AMINOTRANSFERASE 14.0 U/L (15-37); CALCIUM, SERUM 8.7 mg/dL (8.5-10.1); CREATININE 5.1 mg/dL (0.6-1.3); PHOSPHORUS 3.8 mg/dL (2.5-4.9); SODIUM SERUM 143.0 mmol/L (136-145); TOTAL PROTEIN, SERUM 6.9 g/dL (6.4-8.2); UREA NITROGEN, BLOOD 29.0 mg/dL (7-18)
[2025-07-10] VITALS (43 sets, daily range): BP systolic 94–133; BP diastolic 36–74; TEMP 97.5–98.8; O2SAT 90–100
[2025-07-11] VITALS (11 sets, daily range): BP systolic 96–120; BP diastolic 30–56; TEMP 97.6–98.6; O2SAT 99–100
[2025-07-12] VITALS (10 sets, daily range): BP systolic 89–104; BP diastolic 37–44; TEMP 97.3–97.9; O2SAT 100
[2025-07-12] MEDS: PANTOPRAZOLE 40 MG/PACK PACK PO SCH (09:30)
[2025-07-13] VITALS (10 sets, daily range): BP systolic 106–128; BP diastolic 43–54; TEMP 97.4–98.2; O2SAT 95–100
[2025-07-13 06:03] LABS: PLATELET COUNT (AUTO) 105 K/uL (150-450); RED BLOOD CELL COUNT(AUTO) 2.52 MIL/uL (4.5-6.0); RED CELL DISTRIBUTION WIDTH 19.3 % (11.5-15.0); WHITE BLOOD COUNT (AUTO) 10.8 K/uL (4.3-11.0)
[2025-07-13 06:16] LABS: ASPARTATE AMINOTRANSFERASE 15 U/L (15-37); CALCIUM, SERUM 8.5 mg/dL (8.5-10.1); CREATININE 3.1 mg/dL (0.6-1.3); PHOSPHORUS 2.8 mg/dL (2.5-4.9); SODIUM SERUM 140 mmol/L (136-145); TOTAL PROTEIN, SERUM 7.6 g/dL (6.4-8.2); UREA NITROGEN, BLOOD 12 mg/dL (7-18)
[2025-07-14] VITALS (8 sets, daily range): BP systolic 96–114; BP diastolic 40–64; TEMP 97.3–97.7; O2SAT 99–100
[2025-07-15] VITALS (7 sets, daily range): BP systolic 97–121; BP diastolic 45–62; TEMP 97.3–97.5; O2SAT 99–100
== END 2025-07-15 18:48 | DRG 177 ==
LOC: ER 17:09 → TELE 20:55 → MED 06-28 10:45 → ICU 06-30 09:46 → TELE-TD 07-10 18:25 → TELE1 07-10 18:39
PROVIDERS: ADMIT Nurse Practitioner Family; ATTEND Internal Medicine
PROC: 5A1D70Z Performance of Urinary Filtration, Intermittent, Less than 6 Hours Per Day (ICD-10-PCS; principal; 2025-06-23)
PROC: 0W9930Z Drainage of Right Pleural Cavity with Drainage Device, Percutaneous Approach (ICD-10-PCS; 2025-06-25)
PROC: 5A09557 Assistance with Respiratory Ventilation, Greater than 96 Consecutive Hours, Continuous Positive Airway Pressure (ICD-10-PCS; 2025-06-30)
DX: J15.69 Pneumonia due to other Gram-negative bacteria (principal); G93.41 Metabolic encephalopathy; J86.9 Pyothorax without fistula; N18.6 End stage renal disease; J96.02 Acute respiratory failure with hypercapnia; J96.01 Acute respiratory failure with hypoxia; I82.412 Acute embolism and thrombosis of left femoral vein; Z66 Do not resuscitate; E87.1 Hypo-osmolality and hyponatremia; D63.8 Anemia in other chronic diseases classified elsewhere; I13.11 Hypertensive heart and chronic kidney disease without heart failure, with stage 5 chronic kidney disease, or end stage renal disease; J90 Pleural effusion, not elsewhere classified; K92.1 Melena; Z99.2 Dependence on renal dialysis; J15.9 Unspecified bacterial pneumonia; Z79.01 Long term (current) use of anticoagulants; E11.22 Type 2 diabetes mellitus with diabetic chronic kidney disease; J98.11 Atelectasis; Z79.4 Long term (current) use of insulin; Z79.82 Long term (current) use of aspirin; Z79.84 Long term (current) use of oral hypoglycemic drugs; Z79.899 Other long term (current) drug therapy; E78.5 Hyperlipidemia, unspecified; E87.6 Hypokalemia; E11.51 Type 2 diabetes mellitus with diabetic peripheral angiopathy without gangrene; K59.00 Constipation, unspecified; Z87.11 Personal history of peptic ulcer disease; Z87.891 Personal history of nicotine dependence; Z86.718 Personal history of other venous thrombosis and embolism; Z95.1 Presence of aortocoronary bypass graft; I25.10 Atherosclerotic heart disease of native coronary artery without angina pectoris; E87.5 Hyperkalemia
CPT/HCPCS: 36415; 36600; 70450-TC; 71045-TC; 75989; 80048-TC; 80053-TC; 80202-TC; 82272-TC; 82607-TC; 82728-TC; 82803-TC; 82962-TC; 83540-TC; 83605-TC; 83735-TC; 83880; 84100-TC; 84484-TC; 85025-TC; 85027-TC; 85610-TC; 85730-TC; 87040-TC; 87070-TC; 87075-TC; 87081-TC; 87102-TC; 87340; 88112-TC; 88305-TC; 89051-TC; 90935-TC; 92526; 92611; 93307-TC; 93970-TC; 94660; 94760-TC; 94762-TC; 94799-TC; 97110-TC; 97116-TC; 97530-TC; A4216; A4223; A6213; A6253; A6403; G0378; J0692; J1644; J1815; J1885; J1956; J2470; J3373; J7030; J7042; J7050; J7060; P9047; Q9967